=== PATIENT | male | born 1985 | race African-American/Black ===

== ENCOUNTER 2017-01-03 09:33 | Emergency (ER) | payer SELFPAY ==
[~2017-01-03] VITALS: Ht 175.3 cm; Wt 100.0 kg
[~2017-01-03 09:33] MED LIST: LEVO500T3 PO
[2017-01-03 09:36] VITALS: BP 123/57; PULSE 51; RESP 16; TEMP 98.1; O2SAT 98
[2017-01-03] MEDS ORDERED: CYCL1TAB29 PO (10:10)
[2017-01-03] MEDS ORDERED: DICL50TA PO (10:10)
--- NOTE | 2017-01-03 10:11 | PD ---
HPI Chief Complaint: Back/ Neck Pain or Injury Time Seen by Provider: 10:07 Travel History International Travel<30 days: No Contact w/Intl Traveler<30days: No Traveled to known affect area: No History of Present Illness HPI 31-year-old male presents to the emergency department for evaluation of low back pain. He states on Saturday, he was playing basketball when he "tweaked my back". He denies a traumatic injury. 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 He states that he woke up with worsening back pain today. He denies any loss of range of motion has been ambulatory. He denies any fevers or chills. No loss of our bladder control. No saddle anesthesias. He does state it has had back pain in the past. He reports that he has been taking left over prednisone and ibuprofen at home with no improvement. Patient reports no chronic medical problems and takes no prescribed medications. He denies any history of IV drug use. PFSH Past Medical History Diminished Hearing: No Immunizations Current: Yes Social History Alcohol Use: Yes (OCCASIONALLY) Tobacco Use: Yes (< 1/2 PPD) Substance Use: No Allergies-Medications (Allergen,Severity, Reaction): Coded Allergies: No Known Allergies (Verified , 01/03/17) Reported Meds & Prescriptions Reported Meds & Active Scripts Active No Active Prescriptions or Reported Medications Review of Systems Except as stated in HPI: all other systems reviewed are Neg Physical Exam Narrative GENERAL: Well-developed well-nourished male patient, ambulatory. Afebrile. SKIN: Warm and dry. HEAD: Normocephalic. Atraumatic. EYES: No scleral icterus. No injection or drainage. NECK: Supple, trachea midline. No JVD or lymphadenopathy. CARDIOVASCULAR: Regular rate and rhythm without murmurs, gallops, or rubs. Bilateral pedal pulses are 2+. RESPIRATORY: Breath sounds equal bilaterally. No accessory muscle use. Lungs sounds are clear to auscultation. GASTROINTESTINAL: Abdomen soft, non-tender, nondistended. MUSCULOSKELETAL: No cyanosis, or edema. Bilateral upper and lower extremity strength 5/5. All extremities are neurovascularly intact. BACK: No obvious deformity. No CVA tenderness. Patient's tenderness over midline lumbar spine and bilateral lumbar paraspinal musculature. Straight leg raise is positive bilaterally. No clonus. Negative Babinski. Data Data Last Documented VS Vital Signs Date Time Temp Pulse Resp B/P Pulse Ox O2 Delivery O2 Flow Rate FiO2 01/03/17 09:36 98.1 51 16 123/57 98 [facility] Medical Decision Making Medical Screen Exam Complete: Yes Emergency Medical Condition: Yes Medical Record Reviewed: Yes Differential Diagnosis Muscle strain versus muscle spasm versus herniated disc versus sciatica Narrative Course 31-year-old male presents to the emergency department for evaluation of intermittent back pain since Saturday, 4 days ago. No traumatic injury. No red flag symptoms. Patient is given Toradol 60 mg IM and Norflex 60 mg IM in the emergency department. He'll be discharged with a prescription for diclofenac and Flexeril. He is instructed not to take the diclofenac with his ibuprofen. He verbalizes agreement and understanding. He is to follow-up with his primary care physician. He is return for any acute worsening of symptoms. The patient was discharged in stable condition with instructions, including return instructions and follow up instructions. Diagnosis Primary Impression: Low back pain Qualified Code: M54.5 - Acute bilateral low back pain without sciatica Referrals: Primary Care Physician call for appointment Patient Instructions: Acute Low Back Pain (ED), General Instructions Departure Forms: Tests/Procedures, Work Release Enter return to work date: Jan 06, 2017 Additional Instructions: Take diclofenac as directed as needed with food for pain. Do not take with other anti-inflammatories including ibuprofen and naproxen. Take Flexeril as directed as needed. Rotate ice/heat. Follow-up with your primary care physician. Return to the emergency department for any acute worsening of symptoms. Med/Other Pt SpecificInfo: Prescription(s) given Scripts Cyclobenzaprine (Flexeril)10 Mg Tab10 Mg PO TID PRN (MUSCLE SPASM) #21 TAB Ref 0 Prov:Trinity Guzmán 01/03/17 Diclofenac Potassium 50 Mg Tab50 Mg PO TID PRN (PAIN SCALE 1 TO 10) #21 TAB Ref 0 Prov:Trinity Guzmán 01/03/17 Disposition: 01 DISCHARGE HOME Condition: Stable Trinity Guzmán Jan 03, 2017 10:11
[2017-01-03] MEDS ORDERED: KETOROLAC TROMETHAMINE 60 MG/2 ML (IM) VIAL IM ONE (10:15)
[2017-01-03] MEDS ORDERED: ORPHENADRINE INJ 60 MG/2 ML AMP IM ONE (10:15)
== END 2017-01-03 10:37 | disposition home or self-care (01) ==
LOC: NEPB 09:33
DX: M54.5 Low back pain (principal); F17.210 Nicotine dependence, cigarettes, uncomplicated
CPT/HCPCS: 96372; 99283; J1885; J2360

== ENCOUNTER 2018-09-21 23:40 | Observation (INO) ==
[2018-09-22 00:16] VITALS: RESP 16
[2018-09-22 00:36] LABS: Baso # (Auto) 0.1 th/mm3 (0.0-0.2); Eos # (Auto) 0.4 th/mm3 (0.0-0.4); Eos % (Auto) 7.9 % (0.0-4.0); Hematocrit 42.7 % (39.0-51.0); Hemoglobin 14.8 gm/dL (13.0-17.0); Lymph # (Auto) 1.9 th/mm3 (1.0-4.8); Lymph % (Auto) 36.9 % (9.0-44.0); Mean Corpuscular HGB Conc 34.8 % (32.0-36.0); Mean Corpuscular Hemoglobin 32.2 pg (27.0-34.0); Mean Corpuscular Volume 92.5 fL (80.0-100.0); Mean Platelet Volume 7.9 fL (7.0-11.0); Mono # (Auto) 0.6 th/mm3 (0.0-0.9); Mono % (Auto) 11.4 % (0.0-8.0); Neut # (Auto) 2.2 th/mm3 (1.8-7.7); Neut % (Auto) 42.8 % (16.0-70.0); Platelet Count 269 th/mm3 (150-450); Red Blood Count 4.61 mil/mm3 (4.50-5.90); Red Cell Distribution Width 12.9 % (11.6-17.2); White Blood Count 5.1 th/mm3 (4.0-11.0)
[2018-09-22 00:58] LABS: Alanine Aminotransferase 41 U/L (12-78); Albumin 3.7 g/dL (3.4-5.0); Anion Gap 6 meq/L (5-15); Aspartate Aminotransferase 20 U/L (15-37); Blood Urea Nitrogen 11 mg/dL (7-18); Calcium 8.2 mg/dL (8.5-10.1); Carbon Dioxide 27.4 meq/L (21.0-32.0); Chloride 107 meq/L (98-107); Glomerular Filtration Rate Greater Than 89 mL/min (>89); Glucose,Random 98 mg/dL (74-106); Potassium 3.5 meq/L (3.5-5.1); Sodium 140 meq/L (136-145)
[2018-09-22 01:06] LABS: Alkaline Phosphatase 80 U/L (45-117); Total Protein 7.8 g/dL (6.4-8.2)
--- NOTE | 2018-09-22 01:10 | XR ---
EXAM DATE: 09/22/2018 12:47 AM EST AGE/SEX: 32 years / Male INDICATIONS: Chest pain off and on for almost one year, today was lasting pain. CLINICAL DATA: This is the patient's initial encounter. Patient reports that signs and symptoms have been present for 7 - 11 months and indicates a pain score of 7/10. MEDICAL/SURGICAL HISTORY: None. None. COMPARISON: No prior exams available for comparison. FINDINGS: A single AP view of the chest demonstrates the lungs to be symmetrically aerated without evidence of mass, infiltrate or effusion. The cardiomediastinal contours are unremarkable. Osseous structures a re intact. CONCLUSION: Negative examination. Electronically signed by: Jim Iniguez MD 09/22/2018 1:08 AM EST
--- NOTE | 2018-09-22 01:53 | ED ---
HPI General Chief Complaint: Chest Pain Stated Complaint: Chest pain Time Seen by Provider: 09/22/18 00:37 Source: patient Mode of arrival: ambulatory Limitations: no limitations History of Present Illness HPI narrative: 32-year-old male came to the emergency room with history of on and off chest pain for past 3 months on the left side of his chest without any radiation. Patient says that the pain comes last for a few seconds. However today it came and lasted for 2 minutes or more which concerned him and hence he came to the emergency room. Patient denies any associated symptoms like shortness of breath, lightheadedness or syncopal episode. However patient says that he has had syncopal episodes in the past. He was seen in [facility] at that time. Patient says currently he is not in pain but he had few minutes back. Vital signs are otherwise stable. He is a smoker. He is otherwise a healthy person as per his own claims. Patient says that the pain gets worse on occasions on ambulation. No relieving symptoms identified. Related Data Home Medications Medication Instructions Recorded Confirmed No Known Home Medications 09/22/18 09/22/18 Allergies Allergy/AdvReac Type Severity Reaction Status Date / Time No Known Allergies Allergy Uncoded 01/03/17 10:00 Review of Systems ROS: all other systems reviewed are negative [facility] Medical History Medical History Patient denies medical problems (Acute) Surgical History Surgical History No history of previous surgery (Acute) Social History Social History Substance History: No History of Abuse Smoking Status: Current every day smoker Tobacco Type: Cigarettes How Often Do You Have a Drink Containing Alcohol: 4 or more times a week Recent Travel in [facility] within the Last 8 Weeks: No Recent Out of Country Travel within the Last 8 Weeks: No Immunization History Tetanus Immunization: >5 Years Exam Narrative Exam Narrative: GENERAL: Awake, alert, no obvious distress SKIN: Focused skin assessment warm/dry. HEAD: Atraumatic. Normocephalic. EYES: Pupils equal and round. No scleral icterus. No injection or drainage. ENT: No nasal bleeding or discharge. Mucous membranes pink and moist. NECK: Trachea midline. No JVD. CARDIOVASCULAR: Regular rate and rhythm. No murmur appreciated. RESPIRATORY: No accessory muscle use. Clear to auscultation. Breath sounds equal bilaterally. GASTROINTESTINAL: Abdomen soft, non-tender, nondistended. Hepatic and splenic margins not palpable. MUSCULOSKELETAL: No obvious deformities. No clubbing. No cyanosis. No edema. NEUROLOGICAL: Awake and alert. No obvious cranial nerve deficits. Motor grossly within normal limits. Normal speech. PSYCHIATRIC: Appropriate mood and affect; insight and judgment normal. Course Initial Documented Vital Signs Temperature 97.9 F 09/22/18 00:04 Pulse Rate 61 09/22/18 00:04 Respiratory Rate 20 09/22/18 00:04 Blood Pressure 153/85 H 09/22/18 00:04 Pulse Oximetry 98 09/22/18 00:04 Last Documented Vital Signs Temperature 97.9 F 09/22/18 00:04 Pulse Rate 55 L 09/22/18 00:15 Respiratory Rate 16 09/22/18 00:15 Blood Pressure 130/67 09/22/18 00:15 Pulse Oximetry 98 09/22/18 00:17 Medical Decision Making [facility] Narrative Medical decision making narrative: 1:56 AM blood test results are back and within the upper limits. D-dimer is negative. Chest x-ray is negative. I will give him 2 baby aspirins and admit him to the chest pain center to be ruled out. Patient is -[place] and a smoker as his risk factors. Lab Data Result diagrams: 09/22/18 00:20 09/22/18 00:20 Lab Results 09/22/18 09/22/18 09/22/18 Range/Units 00:20 00:20 00:20 WBC 5.1 (4.0-11.0) th/mm3 RBC 4.61 (4.50-5.90) mil/mm3 Hgb 14.8 (13.0-17.0) gm/dL Hct 42.7 (39.0-51.0) % MCV 92.5 (80.0-100.0) fL MCH 32.2 (27.0-34.0) pg MCHC 34.8 (32.0-36.0) % RDW 12.9 (11.6-17.2) % Plt Count 269 (150-450) th/mm3 MPV 7.9 (7.0-11.0) fL Neut % (Auto) 42.8 (16.0-70.0) % Lymph % (Auto) 36.9 (9.0-44.0) % [place] % (Auto) 11.4 H (0.0-8.0) % Eos % (Auto) 7.9 H (0.0-4.0) % Baso % (Auto) 1.0 (0.0-2.0) % Neut # (Auto) 2.2 (1.8-7.7) th/mm3 Lymph # (Auto) 1.9 (1.0-4.8) th/mm3 [place] # (Auto) 0.6 (0.0-0.9) th/mm3 Eos # (Auto) 0.4 (0.0-0.4) th/mm3 Baso # (Auto) 0.1 (0.0-0.2) th/mm3 WBC Differential . Differential Comment Auto diff final D-Dimer Quant (PE/DVT) 0.25 (0.00-0.50) mg/L FEU Sodium 140 (136-145) meq/L Potassium 3.5 (3.5-5.1) meq/L Chloride 107 (98-107) meq/L Carbon Dioxide 27.4 (21.0-32.0) meq/L Anion Gap 6 (5-15) meq/L BUN 11 (7-18) mg/dL Creatinine 1.16 (0.60-1.30) mg/dL Estimated GFR Greater than 89 (>89) mL/min Random Glucose 98 (74-106) mg/dL Calcium 8.2 L (8.5-10.1) mg/dL Total Bilirubin 0.6 (0.2-1.0) mg/dL AST 20 (15-37) U/L ALT 41 (12-78) U/L Alkaline Phosphatase 80 (45-117) U/L Troponin I Less than 0.02 L (0.02-0.05) ng/mL Total Protein 7.8 (6.4-8.2) g/dL Albumin 3.7 (3.4-5.0) g/dL Imaging Data Radiologist's impression: Chest X-Ray 09/22/18 00:16 CONCLUSION: Negative examination. ECG Data Attestation: I personally reviewed and interpreted this ECG as follows: Interpretation: Twelve-lead EKG was reviewed by me. Normal sinus rhythm, normal axis, lateral and inferior T wave inversions, bradycardia. Heart rate of 54 bpm. Discharge Plan Discharge Disposition Patient Disposition: 32 Still Patient Physicians Team ED Provider: Iona Jansen Primary Care Provider: Primary Care Claudette Wise Rxs /Orders / Referrals /Forms Prescriptions: No Action No Known Home Medications RF: 0 Discharge Instructions Patient Printed Instructions: Chest Pain (ED) Discharge Interventions Interventions: Vital Signs Last Done: 09/22/18 00:15 Status ED Status: With Doctor
[2018-09-22 04:50] LABS: Creatine Kinase 279 U/L (39-308)
[2018-09-22 08:09] VITALS: PULSE 45
[2018-09-22 08:14] VITALS: BP 128/78; TEMP 97.9; O2SAT 95
--- NOTE | 2018-09-22 08:21 | P.HPCA ---
History of Present Illness Primary Care Physician: No Primary Care Physician Chief Complaint: Chest pain History of Present Illness: This is a 32-year-old male without history of hypertension, hyperlipidemia, diabetes, CAD presents to ED with complaint of sharp left-sided chest discomfort he has had for years. States it occurs 4-5 times a week. Essentially randomly. At times it occurs with activity but primarily random. He can play sports without having the chest discomfort at all. When it occurs it usually tender. When it occurs to use the last 20-30 seconds however last evening the last 2-3 minutes which concerned him. Patient. Denies shortness of breath, nausea, or diaphoresis. Cannot recall having a stress test. He also states he has had episodes of passing out in the past. He states he has passed out maybe 3 or 4 times since he was in high school. His last time was a couple years ago. States that he has noticed any symptoms prior to passing out he would just be doing something and wake up on the floor. Denies ever having sensation heart beating rapidly or irregularly. Denies headache. He has had a cough recently. It has been nonproductive. Denies fevers or chills. Patient smokes about 1/2 pack of cigarettes daily. Patient has history of tobacco abuse. Denies hypertension, hyperlipidemia, diabetes, and known CAD. Denies immediate family history of CAD but states that his grandfather had an [place] at age 72. Patient has smoked 1/2 pack of cigarettes daily for about 10 years. Denies illicit drug use. Has occasional alcohol. - Diagnosis (1) Chest pain (2) Tobacco abuse Review of Systems General: Patient denies fevers, chills, and recent travel. HEENT: Patient denies headache, sore throat, difficulty swallowing. Cardiovascular: Has the chest discomfort as mentioned above. Denies sensation of heart beating rapidly or irregularly. Has had no syncopal episodes for 2 years. Denies diaphoresis. Respiratory: Denies shortness of breath or inspirational chest discomfort. Denies coughing wheezing or hemoptysis. GI: Patient denies nausea, vomiting, diarrhea, abdominal pain, bloody stools. Musculoskeletal: Patient denies joint pain or edema. Denies calf pain or edema. Neurovascular: Patient denies numbness, tingling, weakness in extremities. Denies headache. Endocrine: Denies polyuria and polydipsia. Hematologic: Denies easy bruising. Skin: Denies rash or itching. PMFSH - History History Provided By: Patient - Medical History Medical History: Medical History (Last Reviewed 09/22/18 @ 01:56 by Iona Jansen MD) Patient denies medical problems - Surgical History Surgical History: Surgical History (Last Reviewed 09/22/18 @ 01:56 by Iona Jansen MD) No history of previous surgery - Tobacco History Second Hand Smoke Exposure: No Tobacco Use In Past 30 Days: Yes Smoking Status: Current some day smoker Tobacco Type: Cigarettes - Alcohol History How Often Do You Have a Drink Containing Alcohol: Monthly or less - Substance Use History Substance History: No History of Abuse - Travel History Recent Travel in the [place] Within the Last 8 Weeks: No Recent Travel Out of the Country Within the Last 8 Weeks: No - Immunization History Tetanus Immunization: >5 Years Medications and Allergies Active Medications: Active Medications Sodium Chloride (Ns Flush) 2 ml IV.FLUSH BID JESSE Sodium Chloride (Ns Flush) 2 ml IV.FLUSH PRN PRN PRN Reason: FLUSH AFTER USING IV ACCESS Allergies Allergy/AdvReac Type Severity Reaction Status Date / Time No Known Allergies Allergy Uncoded 01/03/17 10:00 Home Medications Medication Instructions Recorded Confirmed Type No Known Home Medications 09/22/18 09/22/18 History Exam Vital signs: Vital Signs 09/22/18 00:04 09/22/18 00:15 09/22/18 00:17 Temperature 97.9 F Pulse Rate 61 55 L Respiratory Rate 20 16 Blood Pressure 153/85 H 130/67 Pulse Oximetry 98 97 98 09/22/18 03:51 09/22/18 08:00 09/22/18 08:07 Temperature 98.1 F 97.9 F Pulse Rate 47 L 53 L 45 L Respiratory Rate 16 16 Blood Pressure 115/72 128/78 Pulse Oximetry 98 95 Intake & Output 09/21/18 09/22/18 09/22/18 18:59 06:59 18:59 Weight 79.37 kg Other: # Voids 1 Weight On Admission 79.37 kg Narrative: GENERAL: This is a well-nourished, well-developed patient, in no apparent distress. Patient speaks in clear complete sentences. Patient is pleasant. HEENT: Head is atraumatic and normocephalic. Neck is supple without lymphadenopathy and trachea is midline. No JVD or carotid bruits. CARDIOVASCULAR: Regular rate and rhythm without murmurs, gallops, or rubs. RESPIRATORY: Clear to auscultation. Breath sounds equal bilaterally. No wheezes , rales, or rhonchi. Chest wall is nontender. No use of accessory muscles. GASTROINTESTINAL: Abdomen is nontender, nondistended. Abdomen soft. No obvious pulsatile mass or bruit. No CVA tenderness. Strong femoral pulses bilaterally. Normal bowel sounds in all quadrants. MUSCULOSKELETAL: Patient is moving upper and lower extremities freely. No calf tenderness or edema, no Homans sign. Strong pulses in upper and lower extremities. NEUROLOGICAL: Patient is alert and oriented. Cranial nerves 2-12 are grossly intact. No focal deficits and speech is clear. SKIN: No rash and turgor is normal. Results 09/22/18 00:20 09/22/18 00:20 Cardiac Enzymes 09/22/18 09/22/18 Range/Units 00:20 04:10 AST 20 (15-37) U/L Troponin I Less than 0.02 L Less than 0.02 L (0.02-0.05) ng/mL CBC 09/22/18 Range/Units 00:20 WBC 5.1 (4.0-11.0) th/mm3 RBC 4.61 (4.50-5.90) mil/mm3 Hgb 14.8 (13.0-17.0) gm/dL Hct 42.7 (39.0-51.0) % Plt Count 269 (150-450) th/mm3 Neut # (Auto) 2.2 (1.8-7.7) th/mm3 Lymph # (Auto) 1.9 (1.0-4.8) th/mm3 [place] # (Auto) 0.6 (0.0-0.9) th/mm3 Eos # (Auto) 0.4 (0.0-0.4) th/mm3 Baso # (Auto) 0.1 (0.0-0.2) th/mm3 Comprehensive Metabolic Panel 09/22/18 Range/Units 00:20 Sodium 140 (136-145) meq/L Potassium 3.5 (3.5-5.1) meq/L Chloride 107 (98-107) meq/L Carbon Dioxide 27.4 (21.0-32.0) meq/L BUN 11 (7-18) mg/dL Creatinine 1.16 (0.60-1.30) mg/dL Calcium 8.2 L (8.5-10.1) mg/dL AST 20 (15-37) U/L ALT 41 (12-78) U/L Alkaline Phosphatase 80 (45-117) U/L Total Protein 7.8 (6.4-8.2) g/dL Albumin 3.7 (3.4-5.0) g/dL Intake and Output 09/21/18 09/22/18 09/22/18 22:59 06:59 14:59 Other: # Voids 1 Weight 79.37 kg Weight On Admission 79.37 kg - Imaging and Cardiology Imaging: Impressions Chest X-Ray 09/22/18 00:16 CONCLUSION: Negative examination. EKG interpretations - EKG EKG shows: bradycardia (EKGs are sinus bradycardia with nonspecific T wave changes anteriorly.) Caprini VTE Risk Assessment Caprini VTE Risk Assessment: No/Low Risk (score <= 1) Caprini Risk Assessment Model: Point Value = 1 Point Value = 2 Point Value = 3 Point Value = 5 Age 41-60 Minor surgery BMI > 25 kg/m2 Swollen legs Varicose veins or History of unexplained or recurrent spontaneous Oral contraceptives or hormone replacement Sepsis (< 1 month) Serious lung disease, including pneumonia (< 1 month) Abnormal pulmonary function Acute myocardial infarction Congestive heart failure (< 1 month) History of inflammatory bowel disease Medical patient at bed rest Age 61-74 Arthroscopic surgery Major open surgery (> 45 min) Laparoscopic surgery (> 45 min) Malignancy Confined to bed (> 72 hours) Immobilizing plaster cast Central venous access Age >= 75 History of VTE Family history of VTE Factor V Leiden Prothrombin [id number] Lupus anticoagulant Anticardiolipin antibodies Elevated serum homocysteine Heparin-induced thrombocytopenia Other congenital or acquired thrombophilia Stroke (< 1 month) Elective arthroplasty Hip, pelvis, or leg fracture Acute spinal cord injury (< 1 month) Prophylaxis Regimen: Total Risk Factor Score Risk Level Prophylaxis Regimen 0-1 Low Early ambulation 2 Moderate Order ONE of the following: *Sequential Compression Device (SCD) *Heparin 5000 units SQ BID 3-4 Higher Order ONE of the following medications: *Heparin 5000 units SQ TID *Enoxaparin/Lovenox 40 mg SQ daily (WT < 150 kg, CrCl > 30 mL/min) *Enoxaparin/Lovenox 30 mg SQ daily (WT < 150 kg, CrCl > 10-29 mL/min) *Enoxaparin/Lovenox 30 mg SQ BID (WT < 150 kg, CrCl > 30 mL/min) AND/OR *Sequential Compression Device (SCD) 5 or more Highest Order ONE of the following medications: *Heparin 5000 units SQ TID (Preferred with Epidurals) *Enoxaparin/Lovenox 40 mg SQ daily (WT < 150 kg, CrCl > 30 mL/min) *Enoxaparin/Lovenox 30 mg SQ daily (WT < 150 kg, CrCl > 10-29 mL/min) *Enoxaparin/Lovenox 30 mg SQ BID (WT < 150 kg, CrCl > 30 mL/min) AND *Sequential Compression Device (SCD) Assessment and Plan - Assessment (1) Chest pain Code(s): R07.9 - Chest pain, unspecified Status: Acute (2) Tobacco abuse Code(s): Z72.0 - Tobacco use Status: Acute - Plan * Chest pain: Patient has had serial cardiac enzymes and EKGs for ruling out purposes and has been seen by Dr. Humphrey of cardiology and chest pain center. He will undergo a Kunal protocol ETT and will be discharged home if his stress test is nonischemic with instructions to follow-up with PCP. Return to ED for interval issues. * Tobacco abuse: Patient counseled on the importance of smoking cessation. Patient is stable at this time. He is agreeable to this plan. H&P: Quality - VTE Deep Vein Thrombosis/Pulmonary Embolism Present on Admission: No
[2018-09-22 08:53] LABS: Creatine Kinase 266 U/L (39-308)
--- NOTE | 2018-09-22 12:47 | ECG ---
Date Performed: 09/22/2018 Time Performed: 06:28:22 PTAGE: 32 years EKG: SINUS BRADYCARDIA POSSIBLE RIGHT VENTRICULAR CONDUCTION DELAY NONSPECIFIC ST & T-WAVE ABNOR MALITY BORDERLINE ECG PREVIOUS TRACING : 09/22/2018 04.12 Since previous tracing, no significant change noted DOCTOR: Cesario Humphrey Interpretating Date/Time 09/22/2018 12:45:27
--- NOTE | 2018-09-22 12:47 | ECG ---
Date Performed: 09/22/2018 Time Performed: 04:12:45 PTAGE: 32 years EKG: SINUS BRADYCARDIA POSSIBLE RIGHT VENTRICULAR CONDUCTION DELAY ST DEVIATION AND MODERATE T-W AVE ABNORMALITY, CONSIDER ANTERIOR ISCHEMIA ABNORMAL ECG PREVIOUS TRACING : 09/22/2018 00.16 Since previous tracing, no significant change noted DOCTOR: Cesario Humphrey Interpretating Date/Time 09/22/2018 12:45:53
--- NOTE | 2018-09-22 12:47 | ECG ---
Date Performed: 09/22/2018 Time Performed: 00:16:08 PTAGE: 32 years EKG: SINUS BRADYCARDIA POSSIBLE RIGHT VENTRICULAR CONDUCTION DELAY ST DEVIATION AND MODERATE T-W AVE ABNORMALITY, CONSIDER ANTEROLATERAL ISCHEMIA ABNORMAL ECG PREVIOUS TRACING : 08/15/2014 19.33 Since previous tracing, no significant change noted DOCTOR: Cesario Humphrey Interpretating Date/Time 09/22/2018 12:46:05
--- NOTE | 2018-09-22 12:50 | TR ---
Date Performed: 09/22/2018 Time Performed: 09:46:04 DOCTOR: Cesario Humphrey DRUG LIST: CLINICAL HISTORY: REASON FOR TEST: REASON FOR ENDING: OBSERVATION: CONCLUSION: VICK PROTOCOL ETT. NO CP. TEST STOPPED SECONDARY TO SOB AND LEG FATIGUE.Maximum HR= 162 % Max HR Achieved=85.0% Maximum JX=894/78 Total Exercise Time=12:30 COMMENTS: Patient exercised using the Vick protocol. No electrocardiographic changes were seen to suggest ischemia. Hemodynamic response to exercise was normal. No significant arrhythmia was prese nt.
== END 2018-09-22 11:00 | disposition home or self-care (01) ==
LOC: NEPC 23:40 → NEDA 23:40 → NEPFCDU 09-22 02:55
PROVIDERS: ADMIT Internal Medicine Interventional Cardiology; ATTEND Internal Medicine Interventional Cardiology